=== PATIENT | female | born 1985 | race Caucasian/White ===

== ENCOUNTER 2022-03-20 09:59 | Outpatient (RCR) | payer OTHER, SELFPAY ==
[2022-03-20 11:02] LABS: Beta HCG Quantitative 24.51 mIU/ML
[2022-03-20] MEDS: RHO(D) IMMUNE GLOBULIN 300 MCG/2 ML SYRINGE IM (16:03)
== END 2022-03-20 10:00 | disposition home or self-care (01) ==
LOC: ANHLAB 09:59
PROVIDERS: Visit Provider Obstetrics & Gynecology Gynecology
DX: O20.0 Threatened abortion (principal); Z29.13 Encounter for prophylactic Rho(D) immune globulin; O36.0190 Maternal care for anti-D [Rh] antibodies, unspecified trimester, not applicable or unspecified; Z3A.00 Weeks of gestation of pregnancy not specified
CPT/HCPCS: 36415; 84702; 85461; 86850; 86900; 86901; 90384; 96372; J2790

== ENCOUNTER 2022-03-22 10:07 | Outpatient (CLI) | payer OTHER, SELFPAY ==
[2022-03-22 10:55] LABS: Beta HCG Quantitative 6.44 mIU/ML
== END 2022-03-22 10:08 | disposition home or self-care (01) ==
LOC: ANHLAB 10:10
PROVIDERS: Visit Provider Obstetrics & Gynecology Gynecology
DX: O20.0 Threatened abortion (principal)
CPT/HCPCS: 36415; 84702

== ENCOUNTER 2022-04-24 08:20 | Outpatient (RCR) | payer OTHER, SELFPAY ==
[2022-04-24 09:14] LABS: Hemoglobin A1C 4.3 % (<5.7)
[2022-04-24 09:26] LABS: Beta HCG Quantitative < 2.39 mIU/ML
[2022-04-24 09:37] LABS: Free T4 Free Thyroxine 1.07 ng/mL (0.78-2.19)
[2022-04-26 20:58] LABS: Prolactin 10.8 ng/mL (***)
[2022-04-27 12:37] LABS: DHEA-Sulfate 165 mcg/dL (23-266); Insulin Level Total 7.7 uIU/mL (<=19.6)
[2022-05-01 09:32] LABS: Testosterone Total 28 ng/dL (2-45)
== END 2022-07-23 23:59 | disposition home or self-care (01) ==
LOC: ANHLAB 08:20
PROVIDERS: Visit Provider Obstetrics & Gynecology Gynecology
DX: O02.1 Missed abortion (principal); Z3A.00 Weeks of gestation of pregnancy not specified
CPT/HCPCS: 36415; 82627; 83036; 83525; 84144; 84146; 84402; 84403; 84439; 84443; 84702

== ENCOUNTER 2023-02-24 14:52 | Emergency (ER) | payer OTHER, SELFPAY ==
[2023-02-24 15:00] VITALS: BP 126/93; PULSE 92; RESP 16; TEMP 36.5; O2SAT 97
--- NOTE | 2023-02-24 15:17 | ED.URI ---
HPI - URI/Sore Throat General Chief Complaint: Upper Respiratory Infection Stated Complaint: NOSEBLEEDS Time Seen by Provider: 02/24/23 15:17 Source: patient, RN notes reviewed and old records reviewed Mode of arrival: ambulatory Limitations: no limitations History of Present Illness HPI Narrative: 37 year old female presents to [facility] care with complaints of 3 nose bleeds in the past 12 hours. Patient reports that she had had some cough and sinus drainage for the past 6 days with dry tickle to her throat and some intermittent headache. Patient reports that on the past Saturday she had some chills and she had body aches and low grade fever 100.4F but none since.Patient reports history of sinus problems in past. Patient denies any nausea vomiting or diarrhea or any recent fevers, reports some ear pressure but denies ear pain,. MD elicited complaint: cough, rhinorrhea, nasal congestion and other (bloody noses X3, ear pressure, scratchy throat.) Pertinent past history: other (sinus problems) Onset (ago): day(s) (6) Severity: moderate Able to tolerate fluids by mouth: Yes Treatments prior to arrival: ibuprofen and cold medicine Related Data Home Medications Medication Instructions Recorded Confirmed No Home Medications 02/24/23 02/24/23 Allergies Allergy/AdvReac Type Severity Reaction Status Date / Time No Known Allergies Allergy Verified 02/24/23 14:58 Review of Systems Review of Systems: CONSTITUTIONAL:Reports some malaise,no present chills, sweats, or fever. EYES: Denies visual changes, redness, or discharge. ENT: Reports rhinorrhea, congestion, sinus pain, bloody noses, ear pressure and scratchy sore throat. CARDIOVASCULAR: Denies chest pain, palpitations, or edema. RESPIRATORY: Reports cough.? Denies dyspnea. GASTROINTESTINAL: Denies abdominal pain, nausea, vomiting, diarrhea SKIN: Denies rash or itching. MUSCULOSKELETAL: Denies myalgia. NEUROLOGIC reports some headaches. All systems reviewed & are unremarkable except as noted in HPI and below PMFSH Past Medical History Medical History (Updated 02/26/23 @ 15:12 by Kiara Steward NP) History of sinus problem Surgical History Surgical History (Updated 02/26/23 @ 15:07 by Kiara Steward NP) History of abdominoplasty liposuction Social History Social History (Updated 02/26/23 @ 15:06 by Kiara Steward NP) Smoking status: Never smoker Alcohol intake: current Alcohol use details: social Substance use type: does not use Living arrangements: with family Gender identity (if verbalized by the patient): Female Comments At time of signature, agree with nursing past medical, surgical, social and family history. There is no relevant family history pertinent to the presenting complaint Exam Narrative: GENERAL: Well-appearing, well-nourished, and in no acute distress. HEAD: Normocephalic EYES: PERRLA, conjunctivae clear ENT: Nares clear, turbinates edematous and erythematous, clear discharge. Mucous membranes moist tenderness with sinus pressure. TM pearly chavez with dull light reflex bilaterally; no tragal tenderness. Oropharynx erythematous without lesions. Tonsils not enlarged and without exudate, no drooling, no hoarseness, no trismus, uvula midline.post nasal drainage NECK: Supple. No lymphadenopathy CHEST: Clear to auscultation, breath sounds equal. No wheezing, rhonchi, rales, or stridor. No respiratory distress, speaks in full sentences.cough, SAO2 97% on room air HEART: Regular rate and rhythm. No murmur heard. SKIN: Warm, dry, no rash. NEURO: Alert and oriented x3. PSYCH: Normal mood and affect Course Course Emergency Course: Patient is aware of diagnosis, understands and agrees to treatment plan.? Anticipatory guidance given.? Patient agrees to follow-up as directed and is aware of reasons to seek care at the emergency department. Portions of this record may have been created with
== END 2023-02-24 15:40 | disposition home or self-care (01) ==
PROVIDERS: Emergency Provider Registered Nurse
DX: J06.9 Acute upper respiratory infection, unspecified (principal)
CPT/HCPCS: 87081; 87880; 99203; G0463

== ENCOUNTER 2023-10-28 17:51 | Emergency (ER) | payer OTHER, SELFPAY ==
[2023-10-28 17:56] VITALS: BP 129/90; PULSE 80; RESP 16; TEMP 36.6; O2SAT 100
--- NOTE | 2023-10-28 17:58 | ED.SKABFB ---
HPI - Skin/Abscess/Foreign Bdy General Chief complaint: Skin/Abscess/Foreign Body Stated complaint: Rash Time Seen by Provider: 10/28/23 17:58 Source: patient, RN notes reviewed and old records reviewed Mode of arrival: ambulatory Limitations: no limitations History of Present Illness HPI narrative: 37-year-old female presents to the [facility] with complaints of a rash that started yesterday. Rashes to the left lower back. Reports that it feels like Biofreeze is on her back. Reports it as a burning itching sensation. States he did have chickenpox as a child. Denies any other symptoms Onset (ago): day(s) (1) Related Data Allergies Allergy/AdvReac Type Severity Reaction Status Date / Time No Known Allergies Allergy Verified 10/28/23 17:56 Review of Systems Review of Systems: All systems reviewed & are unremarkable except as noted in HPI and below Constitutional: Constitutional: Reports no additional constitutional complaints Eyes: Eyes: Reports no additional eye complaints ENT: Reports system reviewed and no additional complaints, except as documented Cardiovascular: Cardiovascular: Reports no additional cardiovascular complaints, Denies chest pain and Denies dyspnea Respiratory: Respiratory: Reports no additional respiratory complaints, Denies chest congestion, Denies cough and Denies dyspnea Gastrointestinal: Gastrointestinal: Reports no additional gastrointestinal complaints, Denies abdominal pain, Denies nausea and Denies vomiting Musculoskeletal: Musculoskeletal: Reports no additional musculoskeletal complaints Integumentary/Breasts: Skin/Breast: Reports as per HPI and Reports rash Neurologic: Reports system reviewed and no additional complaints, except as documented Psychiatric: Psychiatric: Reports no additional psychiatric complaints Allergic/Immunologic: Allergic/Immunologic: Reports no additional allergic/immunologic complaints [facility] Past Medical History Medical History History of sinus problem Surgical History Surgical History History of abdominoplasty liposuction Social History Social History Smoking status: Never smoker Alcohol intake: current Alcohol use details: social Substance use type: does not use Living arrangements: with family Gender identity (if verbalized by the patient): Female Comments At the time of my signature, I reviewed and agree with the nursing past medical, surgical, social, and family history. There is no relevant family history pertinent to the patient complaint. Exam Const: General: cooperative, healthy appearing, comfortable, no acute distress, well developed, alert and well nourished Nutritional Appearance: well nourished Orientation/consciousness: patient oriented x3 Limitations: no limitations HENMT: Head: normal to inspection Ears: hearing grossly normal bilaterally and external ears normal Face/Nose/Sinus: Normal external nose present, Normal nares present, Normal nasal mucous membranes and turbinates present, normal facial exam and face symmetric Face and sinus: normal facial exam and face symmetric Eyes: General: appearance normal, both eyes and all related structures Alignment and Position: alignment normal Periorbital: periorbital findings normal Neck: Neck: normal visual inspection, full ROM, no lymphadenopathy and no meningeal signs Chest: Chest palpation & inspection: normal inspection of the chest Resp: Effort & Inspection: normal respiratory effort and able to speak in complete sentences Cardio: Rate: regular rate Skin: General skin exam: normal color and no rashes or lesions noted Lesions: no lesions Trauma: no lacerations or abrasions Wounds: no wounds Other: Rash to the left lower back, with sick yellower red base, consistent with shingles. Patient describ
== END 2023-10-28 18:13 | disposition home or self-care (01) ==
PROVIDERS: Emergency Provider Nurse Practitioner
DX: B02.9 Zoster without complications (principal)
CPT/HCPCS: 99213; G0463

== ENCOUNTER 2024-05-03 09:19 | Emergency (ER) | payer OTHER, SELFPAY ==
--- NOTE | ~2024-05-03 | CT_ITS ---
EXAMINATION: CT lumbar spine wo con DATE: 05/03/2024 11:22 INDICATION: Midline low back pain TECHNIQUE: Computed tomography (CT) of the lumbar spine was performed without intravenous contrast. A utomated exposure control and iterative reconstruction technique were employed. The dose-length produ ct was 387.89 mGy-cm. COMPARISON: None FINDINGS: Alignment is normal. Vertebral body heights are normal. Minimal disc height loss at L3-L4 and L4-L5. Paravertebral soft tissues are unremarkable. The following disc levels are specifically discussed: T12-L1: The disc does not extend beyond the endplate margin. There is mild bilateral facet joint oste oarthritis. There is no neural foraminal stenosis. There is no central canal stenosis. L1-L2: The disc does not extend beyond the endplate margin. There is mild bilateral facet joint osteo arthritis. There is no neural foraminal stenosis. There is no central canal stenosis. L2-L3: The disc does not extend beyond the endplate margin. There is mild to moderate bilateral facet joint osteoarthritis. There is no neural foraminal stenosis. There is no central canal stenosis. L3-L4: Disc is mildly bulging. There is mild right and mild to moderate left facet joint osteoarthrit is. There is mild bilateral neural foraminal stenosis. There is minimal central canal stenosis. L4-L5: Disc is bulging. There is moderate bilateral facet joint osteoarthritis. There is mild right a nd mild to moderate left neural foraminal stenosis. There is mild central canal stenosis. L5-S1: Disc is mildly bulging. There is moderate bilateral facet joint osteoarthritis. There is no ne ural foraminal stenosis. There is no central canal stenosis. IMPRESSION: 1. Mild lumbar spondylosis. No acute osseous abnormality. Reviewed, dictated and finalized at location A. [facility]
[2024-05-03 09:23] VITALS: BP 143/84; PULSE 108; RESP 18; TEMP 36.4; O2SAT 99
--- NOTE | 2024-05-03 10:18 | PC.NURSE ---
Pt. c/o medial lumbar back pain. Tender to palpation. lying supine makes the pain worse.
--- NOTE | 2024-05-03 10:28 | ED.BACK ---
HPI - Back Pain/Injury General Chief Complaint: Back Pain/Injury Stated Complaint: lower back pain Time Seen by Provider: 05/03/24 10:02 History of Present Illness HPI Narrative: 38-year-old otherwise healthy female presenting to the emergency room with chief complaint of low lumbar back pain. Patient states she did not do anything particularly strenuous or exertional and yesterday while doing laundry started noticing midline low back pain that started radiating down her bilateral legs associated with some pins and needles sensations. Denies any urinary symptoms such as incontinence, dysuria, hematuria. Took a test was negative. States she has had sciatica type pain in the past with this is dissimilar. Denies any weakness in the limbs. States that certain positions and movement exacerbate her lower lumbar back pain. Family history of spinal stenosis. No surgical history in the past. Was otherwise in her normal state of health, took Tylenol and ibuprofen without any relief of her symptoms. No saddle anesthesias, no trauma, no IV drug use, no fever, chills. Related Data Allergies Allergy/AdvReac Type Severity Reaction Status Date / Time No Known Allergies Allergy Verified 05/03/24 09:20 Review of Systems Review of Systems: As reviewed above in HPI [facility] Past Medical History Medical History History of sinus problem Surgical History Surgical History History of abdominoplasty liposuction Social History Social History Smoking status: Never smoker Alcohol intake: current Alcohol use details: social Substance use type: does not use Living arrangements: with family Gender identity (if verbalized by the patient): Female Exam Narrative: GENERAL: [Well-appearing, well-nourished, and in no acute distress.] HEAD: [Normocephalic, atraumatic.] EYES: [PERRLA and EOMI.] ENT: Nares clear, no rhinorrhea or epistaxis. Mucous membranes moist. NECK: Supple. CHEST: [Clear to auscultation. No respiratory distress.] HEART: [Regular rate and rhythm]. No murmur heard. [Normal peripheral pulses.] ABDOMEN: [Soft, nondistended], [nontender], [No rigidity or guarding] EXTREMITIES: Focal tenderness to palpation the low lumbar spine midline, no step-offs deformities. No restricted range of motion with lumbar bending, forward flexion or extension. Able to range bilateral lower extremities with good strength in the hip flexors, EHL and FHL 5/5 strength. Ambulated in the emergency department without ataxic or antalgic gait. No tenderness over the sacroiliac joints. Positive left-sided straight leg raise. SKIN: Warm, dry, no rash. NEURO: [No focal deficits]. Alert and oriented [x3.] No saddle anesthesias, no weakness in the flexors or extensors of bilateral lower extremities with symmetric strength. Ambulated unassisted. Subjective paresthesias shooting down the right leg with hip flexion PSYCH: [Normal mood and affect.] Course Vital Signs Vital signs: Vital Signs Temperature 36.4 C 05/03/24 09:23 Pulse Rate 108 H 05/03/24 09:23 Respiratory Rate 18 05/03/24 09:23 Blood Pressure 143/84 H 05/03/24 09:23 Pulse Oximetry 99 05/03/24 09:23 Temperature 36.4 C 05/03/24 09:23 Pulse Rate 70 05/03/24 12:13 Respiratory Rate 16 05/03/24 12:13 Blood Pressure 120/72 05/03/24 12:13 Pulse Oximetry 100 05/03/24 12:13 MDM - Back Pain/Injury MDM Narrative Medical decision making narrative: 38-year-old otherwise healthy female presenting with low lumbar midline back pain without any traumatic injury. No associated saddle anesthesias, weakness, urinary incontinence or urinary issues such as retention. Overall no red flag symptoms for cauda equina or spinal stenosis/conus medullaris. Patient has a strong family history of back pain. Denies any injury. She is otherwise well-appearing in any acute distress. Has a positive straight leg raise on the left side with reproducible paresthesias on the right sciatic nerve distribution with manipulation of the hip flexors. EHL and FHL 5/5 strength. Ambulated in the ED without assistance. Patient likely has lumbago or other musculoskeletal back pain without any concerning features however she has no strong history of this so we did obtain a CT scan of the lumbar region, she was provided Toradol and Decadron for analgesia as well as Robaxin for muscle relaxation. Urinalysis and test obtained. Workup shows a negative urinalysis without any signs of infection. Some blood droplets with patient did start her period. Negative test. CT scan shows mild lumbar spondylosis with bulging of the discs at L4-L5 and L5-S1 with some bilateral facet osteoarthritis but no central canal stenosis or significant neural foraminal stenosis. No acute osseous abnormalities otherwise. Patient was informed of her CT findings and plan of care going forward for physical therapy, primary care referral, low-dose steroids for pain control in addition to Robaxin and Tylenol and ibuprofen. Patient will follow-up with regular doctor he was safe for discharge home at this time with return precautions. Medical Records Attestation: I reviewed the patient's medical records. Lab Data Attestation: I reviewed the patient's lab results. Labs: Lab Results 05/03/24 05/03/24 Range/Units 10:58 10:59 Urine Color Yellow (Yellow) Urine Appearance Clear (Clear) Urine pH 5.5 (5.0-9.0) Ur Specific [place] 1.028 (1.001-1.035) Urine Protein Negative (Negative) mg/dL Urine Glucose (UA) Negative (Negative) mg/dL Urine Ketones Trace H (Negative) mg/dL Ur Blood (Man) 1+ H (Negative) Urine Nitrate Negative (Negative) Urine Bilirubin Negative (Negative) Urine Urobilinogen 0.2 (<2.0) mg/dL Leukocyte Esterase Rfl Negative (Negative) IVORY/UL Urine RBC 3-5 H (0-2) /hpf Urine WBC 0-5 (0-3) /hpf Ur Squamous Epith Cells Occasional (Few) /hpf Urine Bacteria Rare /hpf Urine Casts 3-5 POC Urine HCG, Qual Negative (Negative) Imaging Data Attestation: I personally reviewed and interpreted this imaging study as follows: My impression: Impressions Lumbar Spine CT 05/03/24 11:23 IMPRESSION: 1. Mild lumbar spondylosis. No acute osseous abnormality. Discharge Plan Discharge Clinical Impression: Bulging lumbar disc, Lumbago, Strain of lumbar region Patient Disposition: Home, Self-Care Condition: Stable Instructions: Antibiotic Form, Acute Low Back Pain (ED), Back Pain (ED), Lower Back Exercises (ED) Additional Instructions: Return to the ER if you have increased pain in your back, you develop lower extremity weakness/numbness/paralysis, you have numbness or tingling in your private parts, or you are unable to control your ability to urinate/stool. Patient Language: Kazakh Prescriptions: New acetaminophen [Tylenol Extra Strength] 500 mg tablet 1,000 mg PO TID PRN (Reason: pain) Qty: 30 0RF methocarbamol 750 mg tablet 750 mg PO TID PRN (Reason: pain) Qty: 20 0RF ibuprofen 600 mg tablet 600 mg PO TID PRN (Reason: pain) Qty: 20 0RF methylprednisolone [Medrol (Donovan)] 4 mg tablets,dose pack See Rx Instructions .ROUTE .COMPLEX Qty: 21 0RF Rx Instructions: orally per package directions No Action valacyclovir 1 gram tablet 1,000 mg PO TID 7 Days Qty: 21 0RF Follow-up/Referrals: Orlando Henning MD [Physician] - 3 Days (Establish PCP) PHYSICIAN,[employer]POS[employer] LAY[employer] WORKER [Primary Care Provider] - Time of Disposition: 12:20
[2024-05-03] MEDS: methocarbamoL 750 MG TABLET PO (10:43)
[2024-05-03] MEDS: dexAMETHasone SOD PHOS INJ 10 MG/ML 1 ML VIAL IM (10:44)
[2024-05-03] MEDS: KETOROLAC 30 MG/ML VIAL (*BKC) IM (10:44)
[2024-05-03 11:01] LABS: BEDSIDEPREGUCG Negative (Negative)
[2024-05-03 11:11] LABS: Add Urine Microscopic? YES; Appearance Urine Clear (Clear); Bacteria Urine Rare /hpf; Bilirubin Urine Negative (Negative); Blood Urine 1+ (Negative); Color Urine Yellow (Yellow); Glucose Urine UA Negative (Negative); Ketones Urine Trace mg/dL (Negative); Leukocyte Esterase Ur Negative LEU/UL (Negative); Nitrate Urine Negative (Negative); Protein Urine Negative (Negative); Specific Grav Ur 1.028 (1.001-1.035); Squamous Epithelial Cell Urine Occasional /hpf (Few); Urobilinogen Urine 0.2 mg/dL (<2.0); WBC Urine 0-5 /hpf (0-3); pH Urine 5.5 (5.0-9.0)
[2024-05-03 12:13] VITALS: BP 120/72; PULSE 70; RESP 16; O2SAT 100
== END 2024-05-03 12:46 | disposition home or self-care (01) ==
PROVIDERS: Emergency Provider Student in an Organized Health Care Education/Training Program
DX: S39.012A Strain of muscle, fascia and tendon of lower back, initial encounter (principal); M51.369 Other intervertebral disc degeneration, lumbar region without mention of lumbar back pain or lower extremity pain; M47.816 Spondylosis without myelopathy or radiculopathy, lumbar region; X58.XXXA Exposure to other specified factors, initial encounter
CPT/HCPCS: 72131; 81001; 81025; 96372; 99284; A9270; J1100; J1885